=== PATIENT | male | born 1995 | race Caucasian/White ===

== ENCOUNTER 2021-06-03 13:52 | Inpatient (IN) | payer MEDICAID ==
[~2021-06-03] VITALS: Ht 175.3 cm; Wt 55.5 kg
[2021-06-03] MEDS ORDERED: CLINDAMYCIN 300 MG CAPSULE PO ONE (14:30)
[2021-06-03] MEDS ORDERED: SODIUM CHLORIDE 0.9% 1,000ML IVBOLUS ONE (14:30)
[2021-06-03] MEDS ORDERED: SODIUM CHLORIDE FLUSH 10ML SYR IVF ONE (14:30)
[2021-06-03] MEDS ORDERED: CLINDAMYCIN 300 MG CAPSULE ONE (14:46)
--- NOTE | 2021-06-03 14:52 | NUR ---
THIS RN ASKED PROVIDED IF BC AND IV ANTIBIOTICS WERE APPROPIRATE FOR PT. PROVIDED STATED NO AND CONTINUE WITH PO ANTIBIOTICS. PT RESTING IN BED. MEDICATED PER EMAR. ATTACHED TO MONITORS. VSS. [facility] AT BEDSIDE. Addendum: 06/03/21 at 1654 by BRYAN THIS RN ASKED PROVIDER IF BC AND IV ANTIBIOTICS WERE APPROPIRATE FOR PT. PROVIDER STATED NO AND CONTINUE WITH PO ANTIBIOTICS. PT RESTING IN BED. MEDICATED PER EMAR. ATTACHED TO MONITORS. VSS. [facility] [employer] AT BEDSIDE.
[2021-06-03 14:58] LABS: BASOPHILS % (AUTO) 1 % (0-1); EOSINOPHILS % (AUTO) 0 % (1-7); LYMPHOCYTES % (AUTO) 19 % (22-44); MEAN CORPUSCULAR HEMOGLOBIN 29.6 pg (27.5-34.5); MEAN CORPUSCULAR HGB CONC 33.8 g/dL (33.2-36.2); MEAN PLATELET VOLUME 6.8 fL (7.4-10.4); MONOCYTES % (AUTO) 7 % (2-9); NEUTROPHILS % (AUTO) 73 % (42-75); PLATELET COUNT 549 x10^3/uL (130-400); RED BLOOD COUNT 4.63 x10^6/uL (4.38-5.82); RED CELL DISTRIBUTION WIDTH 14.8 % (9.4-14.8)
[2021-06-03 15:11] LABS: ALBUMIN 3.7 g/dL (3.4-5.0); ANION GAP 4 mmol/L (5-15); CALCIUM 8.9 mg/dL (8.5-10.1); CHLORIDE 96 mmol/L (98-107)
[2021-06-03 15:12] LABS: CREATININE 0.69 mg/dL (0.7-1.3)
--- NOTE | 2021-06-03 15:43 | NUR ---
PT WITH STEADY GAIT TO BATHROOM. VSS. ALEJANDRO.
--- NOTE | 2021-06-03 15:55 | NUR ---
PT TO CT.
[2021-06-03] MEDS ORDERED: OMNIPAQUE 350 MG/ML, 75ML BOTTLE ONE (16:20)
[2021-06-03] MEDS ORDERED: AMPICILLIN/SULBACTAM 3 GM in SODIUM CHLORIDE 0.9% 100 ML IV ONE (17:30)
--- NOTE | 2021-06-03 17:30 | NUR ---
TASK RN: DEVIN AIKEN OBTAINED AND WALKED TO LAB.
[2021-06-03] MEDS ORDERED: ACETAMINOPHEN 500 MG TABLET ONE (17:42)
--- NOTE | 2021-06-03 17:46 | NUR ---
TASK RN: VS REASSESSMENT, PT FEBRILE AND TACHYCARDIC. ERP UPDATED. PT MEDICATED W/ TYLENOL. AWAITING BLOOD CULTURES DRAW PRIOR TO ABX START. PRIMARY RN UPDATED.
[2021-06-03] MEDS ORDERED: ACETAMINOPHEN 500 MG TABLET PO ONE (18:00)
--- NOTE | 2021-06-03 18:19 | NUR ---
[facility] AT BEDSIDE. VSS. NADN. AWAITING BED UPSTAIRS. PT RESTING IN BED.
[2021-06-03] MEDS: AMPICILLIN/SULBACTAM 3 GM in SODIUM CHLORIDE 0.9% 100 ML IV SCH (18:53)
[2021-06-03] MEDS ORDERED: BISACODYL 10 MG SUPP PR PRN (19:00)
[2021-06-03] MEDS ORDERED: ONDANSETRON 2MG/ML, 2ML IVPush PRN ×2 (19:00→20:00)
[2021-06-03] MEDS ORDERED: SODIUM CHLORIDE 0.9% 1,000 ML IV SCH (19:00)
[2021-06-03] MEDS ORDERED: SODIUM CHLORIDE 0.9%, 500ML IVBOLUS ONE (19:00)
--- NOTE | 2021-06-03 19:09 | NUR ---
REPORT TO LALITA CONNER.
[2021-06-03] MEDS ORDERED: LIDOCAINE/PF 1%, 30ML ONE (19:14)
[2021-06-03] MEDS ORDERED: EPINEPHRINE 1 MG/ML, 1ML ONE (19:14)
[2021-06-03] MEDS ORDERED: LIDOCAINE 1%-EPI 1:100K, 30ML INFIL ONE (19:19)
--- NOTE | 2021-06-03 19:29 | NUR ---
PT TRANSPORTED TO OR BY OR TECH.
[2021-06-03] MEDS ORDERED: FENTANYL PF 250 MCG/5ML ONE (19:39)
[2021-06-03] MEDS ORDERED: PROPOFOL 50 ML ONE (19:39)
[2021-06-03] MEDS ORDERED: ROCURONIUM 10 MG/ML,10ML ONE (19:42)
[2021-06-03] MEDS ORDERED: SUCCINYLCHOLINE 20 MG/ML, 10ML ONE (19:42)
[2021-06-03] MEDS ORDERED: ONDANSETRON 2MG/ML, 2ML ONE (19:42)
[2021-06-03] MEDS ORDERED: EPHEDRINE 50 MG/ML, 1ML IVPush PRN (20:00)
[2021-06-03] MEDS ORDERED: DIAZEPAM 5 MG/ML, 2ML IVPush PRN (20:00)
[2021-06-03] MEDS ORDERED: MEPERIDINE/PF 25MG/0.5ML IVPush PRN (20:00)
[2021-06-03] MEDS ORDERED: EPHEDRINE 50 MG/ML, 1ML IM PRN (20:00)
[2021-06-03] MEDS ORDERED: PROMETHAZINE 25 MG/ML, 1ML IVPush PRN (20:00)
[2021-06-03] MEDS ORDERED: LABETALOL 5MG/ML, 20ML IV PRN (20:00)
[2021-06-03] MEDS ORDERED: morphine SULFATE 10 MG/ML, 1ML IVPush PRN (20:00)
[2021-06-03] MEDS ORDERED: OXYcodone 5 MG/5 ML ORAL.SOL UDC PO PRN (20:00)
[2021-06-03] MEDS ORDERED: DIPHENHYDRAMINE 50 MG/ML, 1ML IVPush PRN (20:00)
[2021-06-03] MEDS ORDERED: FENTANYL PF 100 MCG/2ML ONE (20:44)
[2021-06-03] MEDS: FENTANYL PF 100 MCG/2ML IV PRN ×3 (20:48→21:25)
[2021-06-03] MEDS ORDERED: OXYcodone 5 MG/5 ML ORAL.SOL UDC ONE (21:11)
[2021-06-03] MEDS ORDERED: HYDROmorphone 1 MG/ML, 1ML INJ ONE (21:40)
[2021-06-03] MEDS: HYDROmorphone 1 MG/ML, 1ML INJ IVPush PRN ×2 (21:50→21:55)
[2021-06-03 23:00] VITALS: BP 109/74
[2021-06-03] MEDS: SODIUM CHLORIDE 0.9% 1,000 ML IV SCH (23:30)
[2021-06-03] MEDS: CHLORHEXIDINE 15 ML UDC MM SCH (23:44)
[2021-06-03] MEDS ORDERED: SODIUM CHLORIDE 0.9% 1,000ML IV SCH (23:45)
[2021-06-04] MEDS: AMPICILLIN/SULBACTAM 3 GM in SODIUM CHLORIDE 0.9% 100 ML IV SCH ×4 (00:49→19:57)
[2021-06-04] MEDS: HEPARIN 5,000 UNITS/ML, 1ML SQ SCH ×3 (00:49→17:24)
[2021-06-04] MEDS: morphine SULFATE 10 MG/ML, 1ML IVPush PRN ×2 (00:49→04:41)
[2021-06-04 01:00] VITALS: BP 126/84
[2021-06-04] MEDS: CHLORHEXIDINE 15 ML UDC MM SCH ×4 (04:41→19:57)
[2021-06-04] MEDS: SODIUM CHLORIDE 0.9% 1,000 ML IV SCH ×2 (06:14→13:09)
[2021-06-04 06:50] VITALS: BP 116/77
[2021-06-04 07:12] LABS: BASOPHILS % (AUTO) 0 % (0-1); EOSINOPHILS % (AUTO) 0 % (1-7); LYMPHOCYTES % (AUTO) 20 % (22-44); MEAN CORPUSCULAR HEMOGLOBIN 29.4 pg (27.5-34.5); MEAN CORPUSCULAR HGB CONC 33.9 g/dL (33.2-36.2); MEAN PLATELET VOLUME 6.7 fL (7.4-10.4); MONOCYTES % (AUTO) 8 % (2-9); NEUTROPHILS % (AUTO) 71 % (42-75); PLATELET COUNT 502 x10^3/uL (130-400); RED CELL DISTRIBUTION WIDTH 14.6 % (9.4-14.8)
[2021-06-04 07:20] LABS: ANION GAP 4 mmol/L (5-15); CALCIUM 8.3 mg/dL (8.5-10.1); CHLORIDE 97 mmol/L (98-107); CREATININE 0.65 mg/dL (0.7-1.3)
[2021-06-04 14:00] VITALS: BP 114/76
[2021-06-04] MEDS: ACETAMINOPHEN 325 MG TABLET PO PRN ×2 (14:07→19:57)
[2021-06-04 15:26] VITALS: BP 108/76
[2021-06-04] MEDS ORDERED: VANCOMYCIN 1,300 MG in SODIUM CHLORIDE 0.9% 250 ML IV ONE (17:00)
[2021-06-04] MEDS ORDERED: PHARMACOKINETIC MONITORING MC PRN (17:00)
[2021-06-04] MEDS ORDERED: VANCOMYCIN PER PHARMACY MC SCH (17:00)
[2021-06-04 19:02] VITALS: BP 115/78
[2021-06-05] MEDS: HEPARIN 5,000 UNITS/ML, 1ML SQ SCH ×3 (01:24→18:05)
[2021-06-05] MEDS: CHLORHEXIDINE 15 ML UDC MM SCH ×4 (01:25→21:50)
[2021-06-05] MEDS: AMPICILLIN/SULBACTAM 3 GM in SODIUM CHLORIDE 0.9% 100 ML IV SCH ×4 (01:25→21:50)
[2021-06-05] MEDS: SODIUM CHLORIDE 0.9% 1,000 ML IV SCH ×3 (01:25→21:50)
[2021-06-05 01:51] VITALS: BP 114/77
[2021-06-05] MEDS: morphine SULFATE 10 MG/ML, 1ML IVPush PRN ×4 (02:53→18:04)
[2021-06-05] MEDS: CIPROFLOXACIN/PMX 400MG/200ML 200 ML IV SCH ×2 (03:34→16:29)
[2021-06-05] MEDS: VANCOMYCIN 1,000 MG in SODIUM CHLORIDE 0.9% 100 ML IV SCH ×2 (05:04→18:05)
[2021-06-05 07:15] VITALS: BP 107/84
[2021-06-05 08:19] LABS: BASOPHILS % (AUTO) 1 % (0-1); EOSINOPHILS % (AUTO) 0 % (1-7); LYMPHOCYTES % (AUTO) 20 % (22-44); MEAN CORPUSCULAR HEMOGLOBIN 29.8 pg (27.5-34.5); MEAN PLATELET VOLUME 6.6 fL (7.4-10.4); MONOCYTES % (AUTO) 7 % (2-9); NEUTROPHILS % (AUTO) 72 % (42-75); PLATELET COUNT 436 x10^3/uL (130-400); RED BLOOD COUNT 4.64 x10^6/uL (4.38-5.82); RED CELL DISTRIBUTION WIDTH 14.4 % (9.4-14.8)
[2021-06-05 08:31] LABS: ALANINE AMINOTRANSFERASE 71 U/L (12-78); ALBUMIN 2.8 g/dL (3.4-5.0); ANION GAP 4 mmol/L (5-15); CALCIUM 8.1 mg/dL (8.5-10.1); CHLORIDE 100 mmol/L (98-107); CREATININE 0.73 mg/dL (0.7-1.3)
[2021-06-05 08:33] LABS: ALKALINE PHOSPHATASE 122 U/L (45-117); BILIRUBIN,TOTAL 0.5 mg/dL (0.2-1.0); TOTAL PROTEIN 6.2 g/dL (6.4-8.2)
[2021-06-05 12:47] VITALS: BP 104/74
[2021-06-05] MEDS ORDERED: OMNIPAQUE 350 MG/ML, 75ML BOTTLE ONE (13:36)
[2021-06-05] MEDS: ACETAMINOPHEN 325 MG TABLET PO PRN (17:02)
[2021-06-05 19:59] VITALS: BP 112/67
[2021-06-06 01:21] VITALS: BP 120/80
[2021-06-06] MEDS: HEPARIN 5,000 UNITS/ML, 1ML SQ SCH ×3 (01:32→16:00)
[2021-06-06] MEDS: morphine SULFATE 10 MG/ML, 1ML IVPush PRN ×2 (01:32→06:07)
[2021-06-06] MEDS: CHLORHEXIDINE 15 ML UDC MM SCH ×4 (03:36→21:48)
[2021-06-06] MEDS: AMPICILLIN/SULBACTAM 3 GM in SODIUM CHLORIDE 0.9% 100 ML IV SCH (03:36)
[2021-06-06] MEDS: CIPROFLOXACIN/PMX 400MG/200ML 200 ML IV SCH (04:50)
[2021-06-06 05:09] LABS: HCT (SEDRATE) 36.5 % (39.2-51.8)
[2021-06-06 05:18] LABS: BASOPHILS % (AUTO) 1 % (0-1); EOSINOPHILS % (AUTO) 1 % (1-7); LYMPHOCYTES % (AUTO) 30 % (22-44); MEAN CORPUSCULAR HEMOGLOBIN 29.7 pg (27.5-34.5); MEAN CORPUSCULAR HGB CONC 34.2 g/dL (33.2-36.2); MEAN PLATELET VOLUME 7.3 fL (7.4-10.4); MONOCYTES % (AUTO) 8 % (2-9); NEUTROPHILS % (AUTO) 61 % (42-75); PLATELET COUNT 430 x10^3/uL (130-400); RED BLOOD COUNT 4.13 x10^6/uL (4.38-5.82); RED CELL DISTRIBUTION WIDTH 14.7 % (9.4-14.8)
[2021-06-06 05:21] LABS: CHLORIDE 100 mmol/L (98-107)
[2021-06-06 05:36] LABS: ALANINE AMINOTRANSFERASE 111 U/L (12-78); ALBUMIN 2.6 g/dL (3.4-5.0); ALKALINE PHOSPHATASE 135 U/L (45-117); ANION GAP 7 mmol/L (5-15); BILIRUBIN,TOTAL 0.4 mg/dL (0.2-1.0); CALCIUM 8.2 mg/dL (8.5-10.1); CREATININE 0.59 mg/dL (0.7-1.3); TOTAL PROTEIN 6.3 g/dL (6.4-8.2)
[2021-06-06] MEDS: SODIUM CHLORIDE 0.9% 1,000 ML IV SCH ×3 (06:07→23:43)
[2021-06-06] MEDS: VANCOMYCIN 1,000 MG in SODIUM CHLORIDE 0.9% 100 ML IV SCH (06:07)
[2021-06-06 06:24] VITALS: BP 106/71
[2021-06-06] MEDS: ERTAPENEM 1 GM in SODIUM CHLORIDE 0.9% 50 ML IV SCH (11:01)
[2021-06-06 12:45] VITALS: BP 110/73
[2021-06-06 19:44] VITALS: BP 104/69
[2021-06-07 01:19] VITALS: BP 101/67
[2021-06-07] MEDS: HEPARIN 5,000 UNITS/ML, 1ML SQ SCH ×3 (01:38→17:00)
[2021-06-07 05:08] LABS: HCT (SEDRATE) 37.3 % (39.2-51.8)
[2021-06-07 05:10] LABS: BASOPHILS % (AUTO) 1 % (0-1); EOSINOPHILS % (AUTO) 2 % (1-7); LYMPHOCYTES % (AUTO) 47 % (22-44); MEAN CORPUSCULAR HGB CONC 34.3 g/dL (33.2-36.2); MEAN PLATELET VOLUME 7.1 fL (7.4-10.4); MONOCYTES % (AUTO) 10 % (2-9); NEUTROPHILS % (AUTO) 41 % (42-75); PLATELET COUNT 459 x10^3/uL (130-400); RED BLOOD COUNT 4.25 x10^6/uL (4.38-5.82); RED CELL DISTRIBUTION WIDTH 14.3 % (9.4-14.8)
[2021-06-07 05:20] LABS: ALANINE AMINOTRANSFERASE 116 U/L (12-78); ALBUMIN 2.7 g/dL (3.4-5.0); CALCIUM 8.5 mg/dL (8.5-10.1); CREATININE 0.51 mg/dL (0.7-1.3)
[2021-06-07 05:27] LABS: ANION GAP 6 mmol/L (5-15); CHLORIDE 103 mmol/L (98-107)
[2021-06-07 05:32] LABS: ALKALINE PHOSPHATASE 136 U/L (45-117); BILIRUBIN,TOTAL 0.3 mg/dL (0.2-1.0); TOTAL PROTEIN 6.3 g/dL (6.4-8.2)
[2021-06-07] MEDS: CHLORHEXIDINE 15 ML UDC MM SCH ×3 (05:51→17:59)
[2021-06-07] MEDS: SODIUM CHLORIDE 0.9% 1,000 ML IV SCH ×3 (05:51→21:40)
[2021-06-07 06:37] VITALS: BP 112/72
[2021-06-07 09:12] VITALS: BP 111/75
[2021-06-07] MEDS: ERTAPENEM 1 GM in SODIUM CHLORIDE 0.9% 50 ML IV SCH (10:41)
[2021-06-07 13:00] VITALS: BP 119/75
[2021-06-07 19:23] VITALS: BP 114/72
[2021-06-08] MEDS: CHLORHEXIDINE 15 ML UDC MM SCH ×3 (00:13→11:45)
[2021-06-08 00:32] VITALS: BP 95/59
[2021-06-08] MEDS: HEPARIN 5,000 UNITS/ML, 1ML SQ SCH ×2 (00:35→09:40)
[2021-06-08] MEDS: SODIUM CHLORIDE 0.9% 1,000 ML IV SCH ×2 (01:00→09:21)
[2021-06-08 05:43] VITALS: BP 110/73
[2021-06-08 06:32] VITALS: BP 104/70
[2021-06-08] MEDS: ERTAPENEM 1 GM in SODIUM CHLORIDE 0.9% 50 ML IV SCH (11:45)
[2021-06-08 13:05] VITALS: BP 115/73
[2021-06-08] MEDS ORDERED: HYDR-2214 PO (13:54)
[2021-06-08 16:00] VITALS: BP 134/78
== END 2021-06-08 16:40 | disposition home or self-care (01) | DRG 710 ==
LOC: ED 14:35 → EDIP 16:57 → 3N 22:47 → 5SO 06-04 15:09 → 4NE 06-07 09:06 → DCLOUNGE 06-08 16:31
PROVIDERS: ADMIT Internal Medicine; ATTEND Hospitalist
PROC: 0NBT0ZZ Excision of Right Mandible, Open Approach (ICD-10-PCS; 2021-06-03)
PROC: 0C9X0Z1 Drainage of Lower Tooth, Open Approach, Multiple (ICD-10-PCS; 2021-06-03)
PROC: 0CDXXZ1 Extraction of Lower Tooth, Multiple, External Approach (ICD-10-PCS; principal; 2021-06-03 19:00)
PROC: 02HV33Z Insertion of Infusion Device into Superior Vena Cava, Percutaneous Approach (ICD-10-PCS; 2021-06-07)
DX: A41.9 Sepsis, unspecified organism (principal); E87.1 Hypo-osmolality and hyponatremia; Z20.822 Contact with and (suspected) exposure to COVID-19; K04.7 Periapical abscess without sinus; K02.9 Dental caries, unspecified; K03.81 Cracked tooth; D47.3 Essential (hemorrhagic) thrombocythemia; R74.01 Elevation of levels of liver transaminase levels; K12.2 Cellulitis and abscess of mouth; M27.2 Inflammatory conditions of jaws; R50.82 Postprocedural fever; Z87.891 Personal history of nicotine dependence; Z56.0 Unemployment, unspecified; Z79.899 Other long term (current) drug therapy; Z79.891 Long term (current) use of opiate analgesic; Z79.01 Long term (current) use of anticoagulants
CPT/HCPCS: 36415; 84145; 96361; 96374; 99285; J3490; 36573; 70487; 80048; 80053; 82040; 83605; 85025; 85651; 86140; 87040; 87635; 88307; G0378; J0171; J0295; J0744; J1170; J1335; J1644; J2405; J2704; J3010; J3370; Q9967; C1751; J0330; J2270; J7030; J7040; J7050